=== PATIENT | female | born 1970 | race Asian ===

== ENCOUNTER 2017-11-25 14:34 | Emergency (ER) | payer OTHER ==
[2017-11-25 16:57] LABS: ADD UMIC YES; UR ASCORBIC ACID NEGATIVE (NEGATIVE); UR BACTERIA MODERATE /HPF (NONE SEEN); UR BILIRUBIN (Dip) NEGATIVE (NEGATIVE); UR BLOOD (Dip) NEGATIVE (NEGATIVE); UR CLARITY SLIGHTLY CLOUDY (CLEAR); UR COLOR YELLOW (YELLOW); UR GLUCOSE (Dip) NEGATIVE (NEGATIVE); UR KETONES (Dip) NEGATIVE (NEGATIVE); UR LEUKOCYTE ESTERASE (Dip) TRACE Leu/ul (NEGATIVE); UR MUCUS MODERATE /HPF (NONE SEEN); UR NITRITE (Dip) POSITIVE (NEGATIVE); UR RBC 3 /HPF (0-5); UR SPECIFIC GRAVITY (Dip) 1.015 (1.003-1.030); UR SQUAMOUS EPITHELIAL CELL FEW /HPF (FEW); UR TOTAL PROTEIN (Dip) NEGATIVE (NEGATIVE); UR UROBILINOGEN (Dip) NEGATIVE (NEGATIVE); UR WBC 12 /HPF (0-5)
== END 2017-11-25 19:08 | disposition home or self-care (01) ==
LOC: FTE 14:34
DX: N39.0 Urinary tract infection, site not specified (principal)
CPT/HCPCS: 71045; 76705; 81001; 81025; 99285-25

== ENCOUNTER 2018-01-03 08:08 | Day surgery (SDC) | payer OTHER ==
[~2018-01-03 08:08] MED LIST: BUPIVACAINE 0.25% (MPF) 30 ML INJ; CEFAZOLIN 2 GM/50 ML (PMX) 50 ML IVPB; PROPOFOL 200 MG INJ; SOD CHLORIDE 0.9% 1,000 ML IV
[2018-01-03 09:18] LABS: ADD MAN DIFF? NO
[2018-01-03 09:37] LABS: BASOPHIL # 0.1 10^3/ul (0.0-0.1); BASOPHILS % 0.7 % (0.0-2.0); EOSINOPHILS # 0.3 10^3/ul (0.0-0.5); EOSINOPHILS % 3.1 % (0.0-7.0); HEMATOCRIT 37.1 % (37.0-47.0); HEMOGLOBIN 11.9 g/dl (12.0-16.0); LYMPHOCYTES # 2.2 10^3/ul (0.8-2.9); LYMPHOCYTES % 24.3 % (15.0-51.0); MEAN CORPUSCULAR HEMOGLOBIN 26.7 pg (29.0-33.0); MEAN CORPUSCULAR HGB CONC 32.1 g/dl (32.0-37.0); MEAN CORPUSCULAR VOLUME 83.2 fl (82.0-101.0); MEAN PLATELET VOLUME 12.1 fl (7.4-10.4); MONOCYTE # 0.5 10^3/ul (0.3-0.9); NEUTROPHIL # 5.9 10^3/ul (1.6-7.5); NEUTROPHILS % 65.6 % (39.0-77.0); PLATELET COUNT 211 10^3/UL (140-415); RED BLOOD COUNT 4.46 10^6/ul (4.20-5.40); RED CELL DISTRIBUTION WIDTH 18.1 % (11.5-14.5)
[2018-01-03 09:47] LABS: ALANINE AMINOTRANSFERASE 608 IU/L (13-69); ALBUMIN 4.3 g/dl (3.3-4.9); ALBUMIN/GLOBULIN RATIO 1.22; ALKALINE PHOSPHATASE 190 IU/L (42-121); ANION GAP 15 (8-16); ASPARTATE AMINO TRANSFERASE 513 IU/L (15-46); BILIRUBIN,INDIRECT 0.3 mg/dl (0-1.1); BILIRUBIN,TOTAL 0.3 mg/dl (0.2-1.3); BLOOD UREA NITROGEN 11 mg/dl (7-20); CARBON DIOXIDE 23 mmol/L (21-31); CHLORIDE 109 mmol/L (97-110); CREATININE 0.59 mg/dl (0.44-1.00); GLUCOSE 92 mg/dl (70-220); INR 0.92; PROTIME 12.4 Sec (11.9-14.9); SODIUM 143 mmol/L (135-144); TOTAL PROTEIN 7.8 g/dl (6.1-8.1)
[2018-01-03 09:48] LABS: PARTIAL THROMBOPLASTIN TIME 28.4 Sec (25.0-35.0)
[2018-01-03] MEDS ORDERED: MIDAZOLAM 1 MG/ML 2 ML INJ (12:07)
[2018-01-03] MEDS ORDERED: METOCLOPRAMIDE 10 MG INJ (12:07)
[2018-01-03] MEDS ORDERED: NEOSTIGMINE 3 MG/3 ML SYRINGE (12:07)
[2018-01-03] MEDS ORDERED: ONDANSETRON 4 MG INJ (12:07)
[2018-01-03] MEDS ORDERED: KETOROLAC 30 MG INJ (12:07)
[2018-01-03] MEDS ORDERED: ROCURONIUM 50 MG INJ (12:07)
[2018-01-03] MEDS ORDERED: ROPIVACAINE 0.5 % 30 ML VIAL (12:07)
[2018-01-03] MEDS ORDERED: GLYCOPYRROLATE 1 MG INJ (12:07)
[2018-01-03] MEDS ORDERED: LABETALOL HCL 20MG INJ IV (12:30)
[2018-01-03] MEDS ORDERED: OXYCODONE/ACETAMINOPHEN (5/325) TAB PO (12:30)
[2018-01-03] MEDS ORDERED: HYDROmorphONE 1 MG/5 ML IV SYRINGE IV (12:30)
[2018-01-03] MEDS ORDERED: MEPERIDINE 25 MG INJ IV (12:30)
[2018-01-03] MEDS ORDERED: DIPHENHYDRAMINE 50 MG INJ IV (12:30)
[2018-01-03] MEDS ORDERED: hydrALAzine 20 MG INJ IV (12:30)
[2018-01-03] MEDS ORDERED: SUGAMMADEX SODIUM 200 MG/2 ML VIAL IV (12:50)
[2018-01-03] MEDS ORDERED: SUCCINYLCHOLINE CHLORIDE 100 MG/5 ML SYG IV (12:50)
[2018-01-03] MEDS ORDERED: HYDROCODONE/APAP (5/325) TAB PO (13:00)
[2018-01-03] MEDS: ONDANSETRON 4 MG INJ IV (13:27)
[2018-01-03] MEDS: HYDROmorphONE 1 MG/5 ML IV SYRINGE IV ×2 (13:27→13:34)
== END 2018-01-03 14:42 | disposition home or self-care (01) ==
LOC: SDS 08:08
DX: K80.10 Calculus of gallbladder with chronic cholecystitis without obstruction (principal)
CPT/HCPCS: 47562; 80053; 84703; 85025; 85610; 85730; 88304

== ENCOUNTER 2018-04-02 05:54 | Day surgery (SDC) | payer OTHER ==
[2018-04-02] MEDS ORDERED: MIDAZOLAM 1 MG/ML 2 ML INJ (08:07)
[2018-04-02] MEDS ORDERED: FENTAnyl 50 MCG/ML VIAL (08:07)
== END 2018-04-02 15:11 | disposition home or self-care (01) ==
LOC: GIL 05:54
DX: K29.70 Gastritis, unspecified, without bleeding (principal)
CPT/HCPCS: 43239; 84703; 88305; 88312